=== PATIENT | female | born 1945 | race Caucasian/White ===

== ENCOUNTER 2019-01-06 01:38 | Emergency (ER) | payer MEDICARE, MEDICAID ==
[~2019-01-06] VITALS: Ht 154.9 cm; Wt 48.0 kg
[2019-01-06] MEDS ORDERED: ALBUTEROL 0.083% (NEB) 2.5 MG/3 ML AMP NEB STA (01:46)
[2019-01-06] MEDS ORDERED: IPRATROPIUM (NEB) 0.5 MG/2.5 ML AMP NEB STA (01:46)
[2019-01-06 02:11] VITALS: Ht 154.9 cm; Wt 48.0 kg
--- NOTE | 2019-01-06 02:15 | ERD ---
ER Documentation Chief Complaint Chief Complaint HPI 73-year-old female with a history of COPD transferred here from [facility] for higher level of care. Patient initially arrived from [facility] in [place] to the ER for a nosebleed out of her right nare. She was reportedly very agitated and furious with the staff at the facility. Patient required bilateral nasal packing due to ongoing bleeding. Patient reportedly does not use blood thinners. Patient is normally on supplemental oxygen by nasal cannula. As she is unable to do this now given her nasal packing, the physician at [facility] wanted to admit the patient for observation and possible ENT consult. Since they do not have a ENT at their hospital, the patient was transferred here for admission in case she does need ENT consult. Patient is currently complaining of some shortness of breath and states that she needs a breathing treatment. Otherwise she has no acute complaints. ROS All systems reviewed and are negative except as per history of present illness. PMhx/Soc History of Surgery: Yes (C2 fracture with halo in 2010. Wrist surgery, hip surgery, knee surgery) Hx Respiratory Disorders: Yes (Asthma, COPD,) Hx Cardiac Disorders: Yes (Hypertension) FmHx Family History: No diabetes Physical Exam Vitals Vital Signs Date Temp Pulse Resp B/P (MAP) Pulse Ox O2 O2 Flow FiO2 Time Delivery Rate 01/06/19 86 20 96 21 01:59 Physical Exam Const: No acute distress Head: Atraumatic Eyes: Normal Conjunctiva ENT: Bilateral Rhino Rocket's in place with no active bleeding anteriorly or in the posterior oropharynx. Normal External Ears, Nose and Mouth. Neck: Full range of motion. No meningismus. Resp: Mild expiratory wheezing throughout lungs. No rales or rhonchi Cardio: Regular rate and rhythm, no murmurs Abd: Soft, non tender, non distended. Normal bowel sounds Skin: No petechiae or rashes Back: No midline or flank tenderness Ext: No cyanosis, or edema Neur: Awake and alert, no facial asymmetry, normal speech, moving all extremities spontaneously Psych: Very easily agitated. Results 24 hrs Current Medications Medications Dose Sig/Annamaria Start Time Status Last (Trade) Ordered Route PRN Stop Time Admin Dose Reason Admin Albuterol 5 mg ONCE STAT 01/06/19 DC 01/06/19 (Proventil NEB 01:46 01:58 0.083% (Neb)) 01/06/19 01:47 Ipratropium 0.5 mg ONCE STAT 01/06/19 DC 01/06/19 [place] NEB 01:46 01:58 (Atrovent 01/06/19 01:47 0.02% (Neb)) Procedures/MDM Labs were reviewed from outside facility. CBC and BMP did not show any significant abnormalities. Coagulation studies were normal. Upon arrival, patient requested a breathing treatment as she normally gets it every 4 hours. This was done. Patient will be admitted to the hospitalist with ENT consulting as necessary. However patient does not require an emergent ENT consult in the ER currently as her nasal bleed has stabilized. Of note, she was treated with c lindamycin IV prophylactically prior to transfer. Departure Diagnosis: Primary Impression: Acute anterior epistaxis Additional Impression: History of COPD Condition: DANIAL Person MD Jan 06, 2019 02:14
[2019-01-06] MEDS ORDERED: ONDANSETRON 4 MG INJ IV PRN (02:30)
[2019-01-06] MEDS ORDERED: ACETAMINOPHEN 325 MG TAB PO PRN (02:30)
[2019-01-06] MEDS ORDERED: OXYCODONE/ACETAMINOPHEN (10/325) TAB PO ONE (03:00)
[2019-01-06] MEDS ORDERED: HYDROmorphONE 0.5 MG/0.5 ML SYG IV STA ×2 (04:45→07:32)
[2019-01-06] MEDS ORDERED: CLIN300C10 PO (06:01)
[2019-01-06 08:35] VITALS: BP 132/74; PULSE 88; RESP 18
--- NOTE | 2019-01-06 09:33 | CONS ---
Assessment/Plan Assessment/Plan Assessment/Plan (Daily) 73-year-old woman with history of COPD requiring nasal cannula oxygen who developed severe epistaxis which was well controlled by placement of bilateral Rhino Rockets. She experienced retrograde bleeding through the nasolacrimal duct which also resulted in some cutaneous ecchymosis and this is expected to slowly resolve. I recommend maintaining the Rhino Rocket in place for 2 to 3 days prior to removal. This will help to avoid recurrent severe epistaxis, which would be far worse for the patient's safety then enduring pain of further procedures or pain of alternative packing options, which are highly likely to be necessary given the severity of the recent episode. Epistaxis that has stopped typically does not require inpatient admission, and this was discussed with the patient and ED physicians. I recommend outpatient follow-up with myself or a local ENT closer to her home in 2 to 3 days. She should take oral antibiotics while nasal packing is in place. Please also note that I was quite calm, gentle, and compassionate in my interactions with this patient. Unfortunately, the patient was aggressive, demanding, demeaning, and rude starting from the moment that I entered the room and continuing after my exit. The patient questioned my need to assess her ears and neck, despite my explanations that this is part of a comprehensive ENT examination which I feel is important for patients to have. The patient refused to listen to my slow, layman explanations of the rationale for nasal packing and the risks of recurrent bleeding that she faces. Although she has clearly had a traumatic experience, I feel that her demeanor and interactions with myself and other medical staff were entirely unwarranted. Consultation Date/Type/Reason Admit Date/Time Date of Consultation: Jan 06, 2019 Type of Consult ENT Reason for Consultation Epistaxis yesterday Requesting Provider: DANIAL PORTILLO MD Date/Time of Note DATE: 01/06/19 TIME: 09:25 Hx of Present Illness 73-year-old female with a history of COPD transferred here from [facility] due to epistaxis status post bilateral packing with Rhino Rocket that was controlled at the outside hospital. Patient initially arrived from [facility] in [place] to the ER for a nosebleed out of her right nare. She was reportedly very agitated and furious with the staff at the facility. Patient required bilateral nasal packing due to ongoing bleeding. Patient reportedly does not use blood thinners. Patient is normally on supplemental oxygen by nasal cannula. As she is unable to use nasal cannula given her nasal packing, the physician at [facility] wanted to admit the patient for observation and possible ENT consult. Since they do not have ENT at their hospital, the patient was transferred here for admission in case she does need ENT consult. The patient was remarkably agitated, disruptive, and rude to local staff and despite not having any bleeding for several hours, I was consulted in order to help assess the patient and reassure her about the appropriateness or lack thereof of her current epistaxis control. Upon arrival, the patient was angry and rude before I even introduced myself. She complained of significant mid facial pain which she related to the packing. She denied any ongoing epistaxis or bleeding into the mouth. She was utilizing nasal cannula oxygen into her mouth. Aside from this, she was in her usual state of health. CBC, BMP and coags were reportedly WNL. Past Medical History asthma COPD on O2 HTN Home Meds Active Scripts Clindamycin Hcl* (Clindamycin Hcl*) 300 Mg Capsule, 300 MG PO TID for 5 Days, CAP Prov:DANIAL PORTILLO MD 01/06/19 Allergies: Uncoded Allergies: PENICILLIN (Allergy, Unknown, 01/06/19) Past Surgical History C2 fracture with halo in 2010. Wrist surgery, hip surgery, knee surgery Family History Significant Family History: no pertinent family hx (No diabetes) Social History Alcohol Use: none Smoking Status: Former smoker Exam/Review of Systems Exam Vitals Vital Signs Date Temp Pulse Resp B/P (MAP) Pulse Ox O2 O2 Flow FiO2 Time Delivery Rate 01/06/19 98.3 88 18 132/74 95 Nasal 08:35 (93) Cannula 01/06/19 2.0 07:00 01/06/19 21 01:59 Exam REVIEW OF SYSTEMS: The patient was asked and responded to a 14 point review of systems regarding constitutional symptoms, eye symptoms, ears, nose, mouth, throat symptoms, cardiovascular symptoms, respiratory symptoms, gastrointestinal symptoms, genitourinary symptoms, musculoskeletal symptoms, integumentary symptoms, neurological symptoms, psychiatric symptoms, endocrine symptoms, hematologic/lymphatic symptoms, and allergic/ immunologic symptoms. Pertinent positive and negative factors are listed in the HPI. PHYSICAL EXAM: The patient underwent a physical examination as described below. The pertinent positive and negative findings are summarized after the description of the examination. Constitutional: The patient's developmental and nutritional status were assessed. The patient's voice quality was assessed. Head and Face: The head and face were inspected for deformities. The salivary glands were palpated. Facial strength was assessed bilaterally. Eyes: Extraocular movements and primary gaze alignment were assessed. Ears, Nose, Mouth & Throat: The external auditory canals and pinnae were examined. The nasal septum, mucosa, and turbinates were inspected by anterior rhinoscopy. The lips, teeth, and gums were examined for abnormalities. The oral mucosa, tongue, palate, tonsils, lateral and posterior pharynx were inspected for the presence of asymmetry or mucosal lesions. Neck: The tracheal position was noted, and the neck was palpated to determine if there were any asymmetries, abnormal neck masses, or thyromegaly. Respiratory: The nature of the breathing and chest expansion/symmetry was obse rved. Cardiovascular: The patient was examined to determine the presence of any edema or jugular venous distension. Abdomen: The contour of the abdomen was noted. Lymphatic: The patient was examined for supraclavicular lymphadenopathy. Musculoskeletal: The patient was inspected for the presence of skeletal deformities. Extremities: The extremities were examined for any clubbing or cyanosis. Skin: The skin was examined for inflammatory or neoplastic conditions. Neurologic: The patient's orientation, mood, and affect were noted. The cranial nerve functions were examined (II-VII, IX-XII). Pertinent positive and negative findings on physical examination: Face: Symmetric. No crepitus, no bony step-offs. Ecchymosis of the right infraorbital region extending slightly to the right nasal dorsum. Ears: AU pinnae WNL, no otorrhea. AD EAC clear, TMi. No hemotympanum. EAC clear, TMi. No hemotympanum. Nose: Bilateral Rhino Rocket noted with syringe port secured to cheek by tape. Internal examination not possible. OC/OP: MMM, tongue midline. Symmetric palate elevation. No mucosal lesions observed. Neck: Trachea midline, supple, no LAD. ANDRÉS BRISCOE MD Jan 06, 2019 09:33
== END 2019-01-06 08:46 | disposition home or self-care (01) ==
LOC: E/R 01:38
DX: R04.0 Epistaxis (principal); J44.9 Chronic obstructive pulmonary disease, unspecified; I10 Essential (primary) hypertension
CPT/HCPCS: 94664; 96374; 96375; 96376; 99284; J1170; J2405